=== PATIENT | male | born 1960 | race Caucasian/White ===

== ENCOUNTER 2018-01-11 18:11 | Inpatient (IN) | payer BC ==
[2018-01-11] MEDS ORDERED: ALPRAZolam 1 MG TAB PO PRN (23:17)
[2018-01-12] MEDS ORDERED: LORazepam 2 MG/ML INJ IM PRN (02:37)
[2018-01-12] MEDS ORDERED: METOPROLOL TARTRATE 25 MG TAB PO SCH (07:00)
[2018-01-12] MEDS ORDERED: levETIRAcetam 500 MG TAB PO SCH (07:00)
[2018-01-12] MEDS ORDERED: BACLOFEN 10 MG TAB PO SCH (07:00)
[2018-01-12 08:03] LABS: Basophils # (A) 0.1 k/uL (0-0.2); Basophils % (A) 1 %; Eosinophils # (A) 0.4 k/uL (0-0.7); Eosinophils % (A) 5 %; HCT 37.6 % (39.0-53.0); HGB 11.6 gm/dL (13.0-17.5); Lymphocytes # (A) 1.9 k/uL (1.0-4.8); Lymphocytes % (A) 26 %; MCHC 30.8 g/dL (31.0-37.0); MCV 94.1 fL (80.0-100.0); Mean Platelet Volume 6.7; Monocytes # (A) 0.5 k/uL (0-1.0); Monocytes % (A) 6 %; Neutrophils # (A) 4.4 k/uL (1.3-7.7); Neutrophils % (A) 60 %; Platelet Count 409 k/uL (150-450); RBC 3.99 m/uL (4.30-5.90); RDW 14.4 % (11.5-15.5); WBC 7.4 k/uL (3.8-10.6)
[2018-01-12 08:23] LABS: Anion Gap 14 mmol/L; Blood Urea Nitrogen 8 mg/dL (9-20); Calcium 9.5 mg/dL (8.4-10.2); Carbon Dioxide 23 mmol/L (22-30); Chloride 106 mmol/L (98-107); Glucose 99 mg/dL (74-99); Potassium 3.8 mmol/L (3.5-5.1); Sodium 143 mmol/L (137-145)
[2018-01-12] MEDS ORDERED: cefTRIAXone IN SWFI 1,000 MG/10 ML SYRINGE IVP SCH (09:00)
[2018-01-12] MEDS: LORazepam 2 MG/ML INJ IV PRN ×2 (12:30→15:27)
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
[2018-01-12 14:42] VITALS: BP 139/88; PULSE 79; RESP 16; TEMP 96.8
--- NOTE | 2018-01-12 14:42 | P.DS ---
Providers Date of admission: 01/11/18 19:37 Attending physician: Erum Guerra Consults: 01/11/18 23:22 Consult Physician Urgent Consulting Provider: Jeanie Ryan Consult Reason/Comments: AMS new onset seizure Do you want consulting provider notified?: Yes, Notify in am Placement Type Exists?: Yes Primary care physician: Yao Herr Hospital Course: Please appear to my HPI Plan - Discharge Summary New Discharge Prescriptions: New Cefuroxime Axetil [Ceftin] 500 mg PO BID #8 tab Continue hydrALAZINE HCL 10 mg PO Q6H PRN PRN Reason: SBP>170 ONLY Polyethylene Glycol 3350 [Miralax] 17 gm PO DAILY PRN PRN Reason: Constipation Albuterol Nebulized [Ventolin Nebulized] 2.5 mg INHALATION RT-Q4H PRN PRN Reason: Shortness Of Breath Lidocaine [Lidoderm 5% Patch] 1 patch TRANSDERM DAILY@0700 OLANZapine [ZyPREXA] 10 mg PO HS@2100 Melatonin 5 mg PO HS Topiramate [Topamax] 25 mg PO HS@2100 Donepezil [Aricept] 5 mg PO HS@2100 OLANZapine [ZyPREXA] 5 mg PO DAILY@0700 Baclofen [Lioresal] 10 mg PO BID@0700,1900 Omeprazole 20 mg PO DAILY@0700 Acamprosate Calcium [Campral] 333 mg PO TID@0700,1200,1700 Tamsulosin [Flomax] 0.4 mg PO DAILY@0700 Thiamine [Vitamin B-1] 100 mg PO DAILY@0700 Multivitamins, Thera [Multivitamin (formulary)] 1 tab PO DAILY@0700 Magnesium Oxide [Mag-Ox] 250 mg PO DAILY@0700 levETIRAcetam [Keppra] 500 mg PO BID@0700,1700 Folic Acid 1 mg PO DAILY@0700 ALPRAZolam [Xanax] 1 mg PO TID PRN PRN Reason: Anxiety Changed Metoprolol Tartrate [Lopressor] 12.5 mg PO BID@0700,1700 #0 Discharge Medication List ALPRAZolam [Xanax] 1 mg PO TID PRN 01/11/18 [History] Acamprosate Calcium [Campral] 333 mg PO TID@0700,1200,1700 01/11/18 [History] Albuterol Nebulized [Ventolin Nebulized] 2.5 mg INHALATION RT-Q4H PRN 01/11/18 [ History] Baclofen [Lioresal] 10 mg PO BID@0700,1900 01/11/18 [History] Donepezil [Aricept] 5 mg PO HS@209901/11/18 [History] Folic Acid 1 mg PO DAILY@69901/11/18 [History] Lidocaine [Lidoderm 5% Patch] 1 patch TRANSDERM DAILY@69901/11/18 [History] Magnesium Oxide [Mag-Ox] 250 mg PO DAILY@69901/11/18 [History] Melatonin 5 mg PO HS 01/11/18 [History] Multivitamins, Thera [Multivitamin (formulary)] 1 tab PO DAILY@0701/11/18 [ History] OLANZapine [ZyPREXA] 5 mg PO DAILY@69901/11/18 [History] OLANZapine [ZyPREXA] 10 mg PO HS@209901/11/18 [History] Omeprazole 20 mg PO DAILY@0701/11/18 [History] Polyethylene Glycol 3350 [Miralax] 17 gm PO DAILY PRN 01/11/18 [History] Tamsulosin [Flomax] 0.4 mg PO DAILY@69901/11/18 [History] Thiamine [Vitamin B-1] 100 mg PO DAILY@0701/11/18 [History] Topiramate [Topamax] 25 mg PO HS@209901/11/18 [History] hydrALAZINE HCL 10 mg PO Q6H PRN 01/11/18 [History] levETIRAcetam [Keppra] 500 mg PO BID@0700,1700 01/11/18 [History] Cefuroxime Axetil [Ceftin] 500 mg PO BID #8 tab 01/12/18 [Rx] Metoprolol Tartrate [Lopressor] 12.5 mg PO BID@0700,1700 #0 01/12/18 [Rx] Follow up Appointment(s)/Referral(s): Yao Herr MD [Primary Care Provider] - 1 Week Patient Instructions/Handouts: New-Onset Seizure in Adults (DC) Activity/Diet/Wound Care/Special Instructions: Return to [facility]. Cardiac diet. Activity as tolerated. No driving for 6 months or until cleared by neurologist. Pt wishes to see his own neurologist and instructed to follow up within the week. Discharge Disposition: TRANSFER TO SNF/ECF
[2018-01-12] MEDS ORDERED: ALBUTEROL NEBULIZED 2.5 MG/3 ML INHALATION PRN (15:02)
[2018-01-12] MEDS ORDERED: POLYETHYLENE GLYCOL 3350 17 GM POWD.PACK PO PRN (15:03)
[2018-01-12] MEDS ORDERED: ACAMPROSATE CALCIUM 333 MG TABLET.DR PO SCH (17:00)
[2018-01-12] MEDS ORDERED: TOPIRAMATE 25 MG TAB PO SCH (21:00)
[2018-01-12] MEDS ORDERED: OLANZapine 10 MG TAB PO SCH (21:00)
[2018-01-12] MEDS ORDERED: MELATONIN 5 MG TABLET PO SCH (21:00)
[2018-01-12] MEDS ORDERED: DONEPEZIL 5 MG TAB PO SCH (21:00)
[2018-01-13] MEDS ORDERED: MULTIVITAMINS, THERA 1 EACH TAB PO SCH (07:00)
[2018-01-13] MEDS ORDERED: TAMSULOSIN 0.4 MG CAP.ER.24H PO SCH (07:00)
[2018-01-13] MEDS ORDERED: FOLIC ACID 1 MG TAB PO SCH (07:00)
[2018-01-13] MEDS ORDERED: LIDOCAINE 5% PATCH TOPICAL SCH (07:00)
[2018-01-13] MEDS ORDERED: OLANZapine 5 MG TAB PO SCH (07:00)
[2018-01-13] MEDS ORDERED: MAGNESIUM OXIDE 400 MG TAB PO SCH (07:00)
[2018-01-13] MEDS ORDERED: PANTOPRAZOLE 40 MG TABLET PO SCH (07:00)
[2018-01-13] MEDS ORDERED: THIAMINE 100 MG TAB PO SCH (07:00)
== END 2018-01-12 15:54 | DRG 884 ==
LOC: 4MS4W 19:37
PROVIDERS: ADMIT Internal Medicine; ATTEND Internal Medicine
DX: F03.90 Unspecified dementia, unspecified severity, without behavioral disturbance, psychotic disturbance, mood disturbance, and anxiety (principal); G40.909 Epilepsy, unspecified, not intractable, without status epilepticus; D64.9 Anemia, unspecified; F10.20 Alcohol dependence, uncomplicated; F32.9 Major depressive disorder, single episode, unspecified; F41.9 Anxiety disorder, unspecified; K21.9 Gastro-esophageal reflux disease without esophagitis; N40.0 Benign prostatic hyperplasia without lower urinary tract symptoms; R82.71 Bacteriuria; G89.29 Other chronic pain; R00.1 Bradycardia, unspecified; M54.9 Dorsalgia, unspecified; Z79.899 Other long term (current) drug therapy; Z87.891 Personal history of nicotine dependence; Z87.820 Personal history of traumatic brain injury
CPT/HCPCS: 80048; 85025

== ENCOUNTER → 2018-08-23 | Outpatient (CLI) | payer BC ==
--- NOTE | 2018-08-24 08:10 | CT ---
EXAMINATION TYPE: CT brain wo con DATE OF EXAM: 08/23/2018 COMPARISON: NONE HISTORY: Dizziness with weakness CT DLP: 1171 mGycm. Automated Exposure Control for Dose Reduction was Utilized. TECHNIQUE: CT scan of the head is performed without contrast. FINDINGS: There is no acute intracranial hemorrhage or midline shift identified. No suspicious extr a-axial fluid collection. There is mild symmetric ventricular and sulcal prominence. No findings to s uggest hydrocephalus. There are few areas of low-attenuation in the periventricular white matter wit h probable left frontal lacunar injury on series 3 image 24. The globes are intact and the visualize d sinuses are clear. Rightward nasal septal deviation is incidentally noted. IMPRESSION: 1. No acute intracranial hemorrhage or midline shift. 2. Frontal predominant mild cerebral atrophy. 3. Few nonspecific white matter changes with possible old lacunar injuries in the left frontal rahman radiata and anterior limb of the left internal capsule..
== END | disposition home or self-care (01) ==
LOC: RADCTMAIN 16:48
PROVIDERS: ATTEND Family Medicine
DX: S09.90XA Unspecified injury of head, initial encounter (principal); G31.9 Degenerative disease of nervous system, unspecified; R90.89 Other abnormal findings on diagnostic imaging of central nervous system
CPT/HCPCS: 70450